=== PATIENT | female | born 1990 | race Caucasian/White ===

== ENCOUNTER → 2021-03-08 09:37 | Outpatient (CLI) | payer BC, SELFPAY ==
[2021-03-08 11:05] LABS: Chloride 101 mmol/L (98-107); Potassium 4.4 mmoL/L (3.5-5.1); Sodium 140 mmol/L (136-145)
[2021-03-08 11:08] LABS: Anion Gap 11.4 mEq/L (5-15); Blood Urea Nitrogen 16 mg/dl (7-17); Calcium 10.2 mg/dl (8.4-10.2); Carbon Dioxide 32 mmol/L (22.0-30.0); Estimated Glomerular Filt Rate 52 ml/min (>60); GFR (African American) 63 ML/MIN (>60); Glucose 107 mg/dl (74-100)
[2021-03-08 11:17] LABS: NT Pro Brain Natriuretic Pep. 40.7 pg/mL (0-125)
== END ==
PROVIDERS: Visit Provider Nurse Practitioner Family
DX: R60.9 Edema, unspecified (principal)
CPT/HCPCS: 36415; 80048; 83880

== ENCOUNTER → 2021-03-16 10:18 | Outpatient (CLI) | payer BC, SELFPAY ==
--- NOTE | 2021-03-16 10:19 | CT_ITS ---
PROCEDURE: CT ABDOMEN PELVIS W CON CLINICAL INDICATION: possible inferior vena cava obstruction Bilateral leg swlling New onset COMPARISON: No exams were available for comparison TECHNIQUE: IV Contrast: 75ML Isovue 370 Oral Contrast None Axial images obtained with sagittal and coronal reformats. All CT scans at the facility use one or more dose reduction, viz: automated exposure control, ma/kV adjustment per patient size (including targeted exams where dose is matched to indication, i.e. head), or iterative reconstruction technique. FINDINGS: LOWER THORAX: The lung bases are clear. ABDOMEN & PELVIS: There is a 10 mm hypodensity in the right hepatic lobe posteriorly which may represent a small hepatic cyst. Mild fatty liver. The spleen, adrenal glands, and pancreas have an unremarkable appearance. There are few small retroperitoneal lymph nodes. There is no evidence inferior vena cava thrombus. The iliac veins have an unremarkable appearance. No renal or ureteral calculi. No hydronephrosis. No evidence of appendicitis. No intestinal obstruction or free air. There is mild thickening of the proximal descending colon nonspecific. No evidence of diverticulitis. There is a 1.5 cm right ovarian cyst. No pelvic fluid collections. No acute bony findings. There is eventration of the abdominal wall at the level of the umbilicus with a small umbilical hernia. Artifact is present from the umbilical ring. IMPRESSION: 1. No acute finding. 2. No evidence of inferior vena cava obstruction. 3. Mild thickening of the proximal descending colon while this could be due to nondistention, 1 cannot exclude the possibility of an area of colitis. Colonoscopy or barium enema may provide further evaluation. Dictated by: Kris Rosales MD 03/17/2021 15:02 Kris Rosales MD in [place] 03/17/2021 15:02
== END ==
PROVIDERS: PCP Family Medicine; Visit Provider Internal Medicine Cardiovascular Disease
DX: R07.9 Chest pain, unspecified (principal); R06.00 Dyspnea, unspecified; K30 Functional dyspepsia; R60.0 Localized edema; R94.31 Abnormal electrocardiogram [ECG] [EKG]; R11.0 Nausea; R53.83 Other fatigue; R63.5 Abnormal weight gain; R40.0 Somnolence; R06.83 Snoring
CPT/HCPCS: 74177; Q9967

== ENCOUNTER → 2021-03-22 09:22 | Outpatient (CLI) | payer BC, SELFPAY ==
[2021-03-22 10:24] LABS: Chloride 101 mmol/L (98-107); Sodium 138 mmol/L (136-145)
[2021-03-22 10:25] LABS: Potassium 4.1 mmoL/L (3.5-5.1)
[2021-03-22 10:27] LABS: Blood Urea Nitrogen 17 mg/dl (7-17); Estimated Glomerular Filt Rate 58 ml/min (>60); GFR (African American) 70 ML/MIN (>60)
[2021-03-22 10:28] LABS: Anion Gap 13.1 mEq/L (5-15); Calcium 9.8 mg/dl (8.4-10.2); Carbon Dioxide 28 mmol/L (22.0-30.0); Glucose 82 mg/dl (74-100)
== END ==
PROVIDERS: Visit Provider Internal Medicine Cardiovascular Disease
DX: R07.9 Chest pain, unspecified (principal); R06.00 Dyspnea, unspecified; R94.31 Abnormal electrocardiogram [ECG] [EKG]; K30 Functional dyspepsia; R11.0 Nausea; R60.0 Localized edema; R63.5 Abnormal weight gain; R40.0 Somnolence; R06.83 Snoring; R53.83 Other fatigue
CPT/HCPCS: 36415; 80048